=== PATIENT | female | born 1935 | race American Indian/Alaskan Native ===

== ENCOUNTER 2018-11-29 14:21 | Emergency (ER) | payer MEDICARE, MEDICAID ==
--- NOTE | 2018-11-29 15:41 | C.PDOC ---
History Of Present Illness 83 year old female with multiple medical problems presents to the emergency department from half-way for swelling of left ring finger with the ring still in place, unable to be removed. Patient is non-verbal, speaks only a few sentences. States that finger "hurts". Time Seen by Provider: 11/29/18 14:27 Chief Complaint (Nursing): Finger,Hand,&Wrist History Per: Patient History/Exam Limitations: clinical condition Onset/Duration Of Symptoms: Hrs Current Symptoms Are (Timing): Still Present Quality: "Pain" Past Medical History Reviewed: Historical Data, Nursing Documentation, Vital Signs Primary Care Provider: Chelsie Monaco - Medical History PMH: Dementia, HTN, Seizures Surgical History: No Surg Hx Family History: States: No Known Family Hx - Social History Hx Alcohol Use: No (unk) Hx Substance Use: No (unk) - Immunization History Hx Tetanus Toxoid Vaccination: No (unk) Hx Influenza Vaccination: Yes Hx Pneumococcal Vaccination: Yes Review Of Systems Review Of Systems: ROS cannot be obtained secondary to pt's inabilty to answer questions. Physical Exam - Physical Exam Appears: Non-toxic, No Acute Distress (0), Other (elderly, frail, bedbound) Skin: Warm, Dry Head: Atraumatic, Normacephalic Eye(s): bilateral: Normal Inspection Neck: Normal, Supple Chest: Symmetrical, No Tenderness Cardiovascular: Rhythm Regular, No Murmur Respiratory: No Rales, No Rhonchi, No Wheezing Gastrointestinal/Abdominal: Soft, No Tenderness Extremity: Swelling (to the ring finger of the left hand, ring in-situ) Neurological/Psych: Oriented x3 Medical Decision Making Medical Decision Making: Patient's hand was cooled and numbed with ice, a ring cutter was used to cut the ring at the volar aspect. Patient tolerated the procedure well. Disposition - Disposition Disposition: HOME/ ROUTINE Disposition Time: 16:26 Condition: STABLE Additional Instructions: Ring was cut off in the Emergency Department. Sent back with the patient. Forms: [facility] (B[place]hi), General Discharge Instructions - POA Present On Arrival: None - Clinical Impression Clinical Impression: Constrictive jewelry of finger - Scribe Statement The provider has reviewed the documentation as recorded by the Scribe (Fercho George) Provider Attestation: All medical record entries made by the Scribe were at my direction and personally dictated by me. I have reviewed the chart and agree that the record accurately reflects my personal performance of the history, physical exam, medical decision making, and the department course for this patient. I have also personally directed, reviewed, and agree with the discharge instructions and disposition.
[2018-11-29 17:13] VITALS: BP 172/74; PULSE 104; RESP 18; TEMP 98.8; O2SAT 100
== END 2018-11-29 18:05 | disposition home or self-care (01) ==
LOC: C.ER 14:21
DX: S60.445A External constriction of left ring finger, initial encounter (principal); W49.04XA Ring or other jewelry causing external constriction, initial encounter